=== PATIENT | male | born 1995 | race Caucasian/White ===

== ENCOUNTER 2018-03-06 21:45 | Emergency (ER) | payer OTHER ==
[~2018-03-06] VITALS: Ht 175.3 cm; Wt 115.7 kg
== END 2018-03-06 22:19 | disposition home or self-care (01) ==
LOC: ER 21:45
DX: T26.81XA Corrosions of other specified parts of right eye and adnexa, initial encounter (principal); H57.8 Other specified disorders of eye and adnexa; Y93.89 Activity, other specified; Y92.69 Other specified industrial and construction area as the place of occurrence of the external cause; Y99.8 Other external cause status